=== PATIENT | male | born 1960 | race Caucasian/White ===

== ENCOUNTER 2017-09-29 08:51 | Inpatient (IN) | payer BC, OTHER ==
[2017-09-24 11:02] VITALS: BMI 33.2
--- NOTE | 2017-09-25 09:21 | HP ---
[facility]ellite [facility] - Chief Complaint Chief Complaint: left hip pain - Past Medical History Allergies/Adverse Reactions: Allergies Allergy/AdvReac Type Severity Reaction Status Date / Time Sulfa (Sulfonamide Allergy Severe Swelling Verified 09/24/17 10:50 Antibiotics) - Current Medications Current Medications: Home Medications Medication Instructions Recorded Atorvastatin Ca [Lipitor] 40 mg PO HS 09/24/17 Ferrous Sulfate 325 mg PO DAILY 09/24/17 Insulin Aspart [Novolog] 38 unit SQ ACDIN 09/24/17 Insulin Aspart [Novolog] 80 unit SQ ACBK 09/24/17 Lisinopril [Prinivil -] 40 mg PO DAILY 09/24/17 Multivitamins [Tab-A-Vit -] 1 tab PO DAILY 09/24/17 Satellite Physical Exam - Physical Examination General Appearance: Well Nourished, Well Developed, Alert & Oriented x3 ENT: Clear Lung: Normal air movement Heart: Regular rate & rhythm Extremities: Other (left hip- + ttp, decr rom, nvi xrays show severe grade 4 djd) Neurological: Intact, Alert, Oriented Satellite Impression/Plan - Impression/Plan Impression: left hip djd Operative Procedure: left yolie thr Date to be Performed: 09/29/17
[2017-09-29] MEDS ORDERED: oxyCODONE HCL 10 MG SUSTAINED ACTING TABLET PO ONE ×2 (09:02→10:15)
[2017-09-29] MEDS ORDERED: TRANEXAMIC ACID 1000 MG/10 ML VIAL IVPUSH ONE (09:02)
[2017-09-29] MEDS ORDERED: CEFAZOLIN 2 GM in DEXTROSE 5%-WATER - 50 ML IVPB ONE (09:02)
[2017-09-29] MEDS ORDERED: GABAPENTIN 300 MG CAPSULE (FP) PO ONE (09:02)
[2017-09-29] MEDS ORDERED: BUPIVACAINE HCL/PF (5 MG/ML) 30 ML VIAL IJ ONE (10:04)
[2017-09-29] MEDS ORDERED: MIDAZOLAM HCL 2 MG/2 ML SINGLE DOSE VIAL ONE (10:04)
[2017-09-29] MEDS ORDERED: EPINEPHrine/PF 1 MG/1 ML (1:1,000) AMPULE ONE (10:04)
[2017-09-29] MEDS ORDERED: DEXAMETHASONE SOD PHOSPHATE/PF 10 MG/ML SDV ONE (10:04)
[2017-09-29] MEDS ORDERED: VANCOMYCIN 1,000 MG VIAL (RESTRICTED TO ID ONLY) ONE (10:41)
[2017-09-29] MEDS ORDERED: ceFAZolin SODIUM 1 GM VIAL ONE (10:41)
[2017-09-29] MEDS ORDERED: MAGNESIUM HYDROX 2400MG/30ML ORAL SUSPENSION 30 ML CUP PO PRN (13:11)
[2017-09-29] MEDS ORDERED: MAG HYDROX/AL HYDROX/SIMETH 30 ML UNIT-DOSE CUP PO PRN (13:11)
[2017-09-29] MEDS ORDERED: ONDANSETRON 4 MG/2 ML VIAL IVPUSH PRN (13:11)
--- NOTE | 2017-09-29 13:14 | OP ---
Operative Note - Note: Operative Date: 09/29/17 (zita) Pre-Operative Diagnosis: left hip djd Operation: left yolie thr Post-Operative Diagnosis: Same as Pre-op Surgeon: Timothy Agrawal Television Audio Engineer: Shakir Adame Anesthesiologist/EEG TECHNOLOGIST: Chris Dubois Anesthesia: Spinal, Local Specimens Removed: femoral head Estimated Blood Loss (mls): 100 Operative Report Dictated: Yes
[2017-09-29] MEDS ORDERED: LACTATED RINGERS SOLUTION 1,000 ML IV SCH (13:15)
[2017-09-29] MEDS ORDERED: oxyCODONE HCL 5 MG TABLET PO PRN (13:37)
[2017-09-29] MEDS: ACETAMINOPHEN 325 MG TABLET (FP) PO SCH ×2 (14:45→21:40)
--- NOTE | 2017-09-29 15:17 | SPEC ---
DATE OF OPERATION: 09/29/2017 PREOPERATIVE DIAGNOSIS: Degenerative joint disease left hip. POSTOPERATIVE DIAGNOSIS: Degenerative joint disease left hip. PROCEDURE PERFORMED: Left total hip replacement with robotic-assisted navigation (MAKOplasty). SURGICAL ATTENDING: Timothy Agrawal MD DOOR FURRING INSTALLER: EBER Cervantes ANESTHESIA: Regional and spinal. CLOSURE: An Accolade II number 8 Press-Fit stem with a +5, 36-mm ceramic head and a 58 Press-Fit Tritanium acetabular shell. Number 1 Vicryl for fascia, 0 and 2-0 subcutaneous, 3-0 V-Loc for skin, 4-0 undyed Vicryl for pin sites. ESTIMATED BLOOD LOSS: Less than 100 mL. COMPLICATIONS: None. CONDITION: To the recovery room in stable condition. DESCRIPTION OF PROCEDURE: The patient was taken to the operating room on September 29, 2017. General and regional anesthesia was administered by the anesthesiologist. IV Kefzol and TXA were administered prophylactically prior to the case. The patient was placed in the lateral decubitus position will all prominences well-padded. The left hip area was prepped and draped in the usual sterile fashion. Using 3 small stab incisions over the iliac crest, 3 threaded pins were drilled in power fashion through the 2 tables of the crest. These pins were fastened and the navigation array for the Bro navigation system. Next, a 12 to 15-cm curved longitudinal incision over the posterolateral aspect of the greater trochanter was incised. Hemostasis was achieved with Bovie cautery. Sharp dissection was carried down to level of the fascia. The fascia was opened the entire length of the incision, spreading the fibers of the gluteus bhanu in the direction of origin. A Charnley retractor was placed in this layer. Care was taken not to impale the sciatic nerve. The short external rotators were detached off the insertion of the greater trochanter and peeled off the capsule. A posterior capsulotomy was then performed. A check point was malleted into the greater trochanter and a point on the inferior pole of the patella was obtained as well. These 2 points were used to assess the preoperative offset and limb lengths of the hip. The hip was then dislocated. The femoral neck was then osteotomized down to the appropriate level as directed by the navigation device. Anterior and posterior retractors were placed, exposing the acetabulum. A circumferential labral excision was performed. A check point was malleted into the acetabulum as well. Multiple sites inside the acetabulum and around the rim were utilized to register the acetabulum with the navigation device. An excellent registration of less than 0.5 mm was obtained. The hip was then reamed with the appropriate reamer down to the appropriate depth, with the appropriate orientation and version as assessed on our preoperative plan for this patient. The reamer was removed and the acetabulum was inspected to have good bleeding surfaces throughout. The real acetabular cup was then malleted down into place, with the holes in the appropriate position, until an excellent fixation was obtained. No screws were necessary. The navigation device ensured appropriate orientation and version, with the depth as predetermined. The appropriate liner was then clipped into place. Attention was directed to the femur. The proximal femur was prepared by use a box chisel, a canal finder and serial broaches until the broach achieved excellent rigidity in the proximal femur with the appropriate version being applied. A calcar planer was used to smooth off the calcar flush with the trial components. A trial reduction with the appropriate head was done, and the hip was reduced. The hip was taken through a range of motion from full extension with external rotation to marked flexion, and was stable at 90 degrees of flexion. It was stable to marked abduction and internal rotation, with a positive hang test and negative telescoping. Limb lengths were ascertained visually as well as with the navigation device to be within the targeted range for this patient. The trial component was removed. The real component was then malleted into place. The head was cold welded to the trunnion, and the hip was reduced. Range of motion, stability and limb lengths were as described in the trial component. Then the hip was pulse antibiotic irrigated. Vancomycin powder was placed in the hip joint. The capsule was closed. The fascia was then closed as well using number 1 Vicryl interrupted suture, 0 and 2-0 subcutaneous, and 3-0 V-Loc for the skin. 4-0 undyed Vicryl was used to close the pin sites after the pins were removed. All check points were also removed. Sterile Aquacel dressing was applied. The patient was awakened from anesthesia and transferred into the supine position. Bilateral SCDs and an abduction pillow were placed. X-rays revealed excellent position of the components. The patient was transferred to the recovery room in stable condition, with no complications. Estimated blood loss was less than 100 mL. Victorina [id number]
[2017-09-29] MEDS ORDERED: INSULIN (NOVOLOG) ASPART 100 UNITS/ML 10ML VIAL SQ SCH (16:30)
[2017-09-29] MEDS: INSULIN SLIDING SCALE (NOVOLOG) 1 VIAL SQ SCH ×2 (17:18→22:08)
[2017-09-29] MEDS: oxyCODONE HCL 5 MG TABLET PO PRN (18:31)
[2017-09-29] MEDS: CEFAZOLIN 2 GM/D5W 2 GM/50 ML ML IVPB SCH (20:14)
[2017-09-29] MEDS: ATORVASTATIN CA 40 MG TABLET (FP) PO SCH (21:40)
[2017-09-29] MEDS: SENNOSIDES/DOCUSATE COMBO (SENNA PLUS) TABLET (UD) PO SCH (21:40)
[2017-09-29] MEDS: oxyCODONE HCL 10 MG SUSTAINED ACTING TABLET PO SCH (21:41)
[2017-09-30] MEDS: CEFAZOLIN 2 GM/D5W 2 GM/50 ML ML IVPB SCH (03:57)
[2017-09-30] MEDS: ACETAMINOPHEN 325 MG TABLET (FP) PO SCH ×4 (03:57→21:27)
[2017-09-30] MEDS ORDERED: INSULIN (NOVOLOG) ASPART 100 UNITS/ML 10ML VIAL SQ SCH (07:00)
[2017-09-30] MEDS ORDERED: INSULIN (NOVOLOG) ASPART 100 UNITS/ML 10ML VIAL ONE ×4 (08:10→21:31)
[2017-09-30] MEDS: INSULIN SLIDING SCALE (NOVOLOG) 1 VIAL SQ SCH ×4 (08:27→21:33)
[2017-09-30] MEDS: ASPIRIN 325 MG TABLET PO SCH (08:28)
[2017-09-30] MEDS: oxyCODONE HCL 5 MG TABLET PO PRN ×3 (08:29→22:13)
--- NOTE | 2017-09-30 08:36 | PN ---
Progress Note (short form) - Note Progress Note: Ortho Pt seen and examined s/p left yolie thr pod #1 Selected Entries 09/30/17 05:00 Temperature 97.6 F Pulse Rate 99 H Respiratory 18 Rate Blood Pressure 130/99 Laboratory Tests 09/30/17 07:45 WBC Pending Hgb Pending Hct Pending Plt Count Pending dressing c/d/i, calf soft ,nt nvi a/p PT hip precautions dvt ppx pain control d/c home tomorrow if stable
[2017-09-30 08:41] LABS: HEMATOCRIT 42.2 % (35.4-49); HEMOGLOBIN 14.1 GM/dl (11.7-16.9); MCH 29.2 pg (25.7-33.7); MCHC 33.4 g/dl (32.0-35.9); MEAN CELL VOLUME 87.5 fl (80-96); MEAN PLT VOLUME 10.4 fl (7.5-11.1); PLATELET COUNT 177 K/MM3 (134-434); RBC 4.82 M/mm3 (4.00-5.60); RDW 13.1 % (11.9-15.9); WHITE BLOOD COUNT 13.2 K/mm3 (4.0-10.8)
[2017-09-30] MEDS: INSULIN (NOVOLOG MIX 70/30) 100 UNITS/ML MDV SQ SCH (08:44)
[2017-09-30] MEDS: PANTOPRAZOLE 40 MG TABLET (FP) PO SCH (09:27)
[2017-09-30] MEDS: MULTIVITAMINS (DAILY MVI) TABLET (FP) PO SCH (09:27)
[2017-09-30] MEDS: SENNOSIDES/DOCUSATE COMBO (SENNA PLUS) TABLET (UD) PO SCH ×2 (09:28→21:27)
[2017-09-30] MEDS: FERROUS SO4 325 MG TABLET (FP) PO SCH (09:28)
[2017-09-30] MEDS: LISINOPRIL 20 MG TABLET (FP) PO SCH (09:28)
[2017-09-30] MEDS: oxyCODONE HCL 10 MG SUSTAINED ACTING TABLET PO SCH ×2 (09:28→21:28)
[2017-09-30] MEDS ORDERED: PATIENT'S OWN MEDICATION (NON-FORMULARY) (Lisinopril [Prinivil -] 40 MG) PO SCH (10:00)
--- NOTE | 2017-09-30 13:24 | PN ---
Progress Note (short form) - Note Progress Note: 57 M POD1 s/p left total hip replacement under spinal anesthetic and peripheral nerve blocks. Pt states pain is doing well, reports no anesthetic complications. Sensory and motor function intact in bilateral lower extremities.
[2017-09-30] MEDS ORDERED: INSULIN (NOVOLOG MIX 70/30) 100 UNITS/ML MDV SQ SCH (16:30)
[2017-09-30] MEDS: ATORVASTATIN CA 40 MG TABLET (FP) PO SCH (21:27)
[2017-09-30 23:07] VITALS: PULSE 82
[2017-10-01] MEDS: ACETAMINOPHEN 325 MG TABLET (FP) PO SCH ×2 (03:13→10:01)
[2017-10-01] MEDS: oxyCODONE HCL 5 MG TABLET PO PRN ×2 (03:15→06:13)
[2017-10-01 05:31] VITALS: BP 123/64; TEMP 97.9
[2017-10-01 08:10] LABS: HEMATOCRIT 39.2 % (35.4-49); WHITE BLOOD COUNT 9.8 K/mm3 (4.0-10.8)
[2017-10-01 08:16] LABS: MCH 29.4 pg (25.7-33.7); MCHC 33.3 g/dl (32.0-35.9); MEAN CELL VOLUME 88.5 fl (80-96); MEAN PLT VOLUME 10.7 fl (7.5-11.1); PLATELET COUNT 144 K/MM3 (134-434); RBC 4.43 M/mm3 (4.00-5.60); RDW 13.2 % (11.9-15.9)
[2017-10-01] MEDS: INSULIN (NOVOLOG MIX 70/30) 100 UNITS/ML MDV SQ SCH (09:56)
[2017-10-01] MEDS: SENNOSIDES/DOCUSATE COMBO (SENNA PLUS) TABLET (UD) PO SCH (09:59)
[2017-10-01] MEDS: oxyCODONE HCL 10 MG SUSTAINED ACTING TABLET PO SCH (09:59)
[2017-10-01] MEDS: LISINOPRIL 20 MG TABLET (FP) PO SCH (10:00)
[2017-10-01] MEDS: MULTIVITAMINS (DAILY MVI) TABLET (FP) PO SCH (10:00)
[2017-10-01] MEDS: PANTOPRAZOLE 40 MG TABLET (FP) PO SCH (10:00)
[2017-10-01] MEDS: FERROUS SO4 325 MG TABLET (FP) PO SCH (10:00)
[2017-10-01] MEDS: INSULIN SLIDING SCALE (NOVOLOG) 1 VIAL SQ SCH (10:01)
[2017-10-01] MEDS: ASPIRIN 325 MG TABLET PO SCH (10:01)
--- NOTE | 2017-10-02 09:43 | DS ---
Physical Examination Vital Signs: Vital Signs Temperature 97.9 F 10/01/17 05:30 Pulse Rate 82 10/01/17 05:30 Respiratory Rate 20 10/01/17 05:30 Blood Pressure 123/64 10/01/17 05:30 O2 Sat by Pulse Oximetry (%) 97 10/01/17 05:30 Labs: CBC, BMP 10/01/17 07:00 Discharge Summary Reason For Visit: OSTEOARTHRITIS Procedures: Principal: s/p left yolie thr Hospital Course: admitted for elective left yolie thr, uneventful post-op, stable for d/c Condition: Good - Instructions Diet, Activity, Other Instructions: Post-op Instructions-Total Hip Replacement Call the office for a follow-up appointment in 1 week - [phone] Aspirin 325mg daily for 6 weeks. Pain medication was sent into your pharmacy. Apply Graduated Compression Stockings (TEDs) to both lower extremities- remove daily for hygiene ONLY Apply Sequential Compression Device (SCDs) to both Lower extremities remove for PT and hygiene ONLY Apply cold packs to affected area for 15 minutes every 2 hours. Physical Therapist will come to your home for the first 5 days. You will be set up with outpatient PT at your first post-operative visit. Patient may ambulate as tolerated-encourage self care (at least every 2-3 hours while awake) with walker or cane Maintain Aquacel (waterproof) dressing to operative wound (will be removed by surgeon at first office visit) Shower with Aquacel dressing in place-if Aquacel integrity compromised, remove and apply dry sterile dressing and notify Orthopedist. DO NOT SHOWER unless Orthopedists approves without Aquacel dressing CONTACT THE OFFICE FOR ANY CHANGE IN YOUR CONDITION (for example-fever greater than 102 degrees, excessive bleeding from operative site, purulent drainage, severe swelling or pain) GO TO THE EMERGENCY ROOM IF THERE IS A MEDICAL EMERGENCY Hip Precautions: * Keep a rolled towel under affected heel while in bed or chair (to keep knee in extension) * Dependent upon approach: * Posterior - do not cross legs; do not sit on low chairs or toilets. * If you have any questions, please do not hesitate to call the office - [phone]. Referrals: Timothy Agrawal MD [Staff Physician] - Disposition: VNS/HOME HEALTH CARE - Home Medications Comprehensive Discharge Medication List: Ambulatory Orders Atorvastatin Ca [Lipitor] 40 mg PO HS 09/24/17 Ferrous Sulfate 325 mg PO DAILY 09/24/17 Insulin Aspart [Novolog] 38 unit SQ ACDIN 09/24/17 Insulin Aspart [Novolog] 80 unit SQ ACBK 09/24/17 Lisinopril [Prinivil -] 40 mg PO DAILY 09/24/17 Multivitamins [Multivit ([facility] Formul[facility])] 1 tab PO DAILY 09/24/17 Aspirin [ASA -] 325 mg PO DAILY@0800 tablet 09/29/17 Oxycodone HCl/Acetaminophen [Percocet 5-325 mg Tablet] 1 - 2 tab PO Q6H #50 tab MDD 8 09/29/17
--- NOTE | 2017-10-02 12:51 | PATH ---
Surgical Pathology Report Patient Name: ONEIDA BHARDWAJ [facility]. Rec. #: [id number] /Age/Gender: 1960 (Age: 57) / M Account: [id number] Location: [facility] MED-SURG Taken: 09/29/2017 Received: 09/29/2017 Reported: 10/02/2017 Physicians: Timothy Agrawal M.D. Specimen(s) Received LEFT FEMORAL HEAD Clinical History Osteoarthritis Final Diagnosis FEMORAL HEAD, LEFT, TOTAL HIP REPLACEMENT: BONE WITH DEGENERATIVE JOINT DISEASE. Electronically Signed Zina Barnes M.D. Gross Description Received in formalin, labeled "left femoral head," is a 4.5 x 4.5 x 4.3 cm. femoral head with no femoral neck attached. The margin of resection is smooth. There is a 1 cm in greatest dimension area of eburnation identified. The remaining articular surface is breaux-yellow and diffusely granular. The underlying trabecular bone is yellow and hard. Also received within the same container is a 6.0 x 5.4 x 1.5 cm aggregate of 3 portions of bone, consistent with portions of femoral neck. A vaccine customer representative section is submitted in one cassette, following decalcification. 10/01/201710/01/2017
== END 2017-10-01 12:50 | disposition home health service (06) | DRG 470 ==
LOC: FM/S 08:51
PROVIDERS: ADMIT Orthopaedic Surgery; ATTEND Orthopaedic Surgery
PROC: 8E0Y0CZ Robotic Assisted Procedure of Lower Extremity, Open Approach (ICD-10-PCS; 2017-09-29)
PROC: 0SRB049 Replacement of Left Hip Joint with Ceramic on Polyethylene Synthetic Substitute, Cemented, Open Approach (ICD-10-PCS; principal; 2017-09-29 11:54)
DX: M16.12 Unilateral primary osteoarthritis, left hip (principal)
CPT/HCPCS: 36415; 73502-TC-LT; 85027; 86803; 87389; 88304-TC; 88311-TC; 94010; 94760; 97116-GP; 97162-GP